=== PATIENT | female | born 1990 | race Two or more races ===

== ENCOUNTER 2023-09-08 09:45 | Emergency (ER) | payer MEDICAID, OTHER ==
[~2023-09-08] VITALS: Ht 170.2 cm; Wt 91.8 kg
[2023-09-08 10:43] VITALS: BP 147/87; PULSE 88; RESP 18; O2SAT 98
[2023-09-08] MEDS: ACETAMINOPHEN 500 MG TAB PO ONE (10:54)
[2023-09-08] MEDS ORDERED: NAPR-746 PO (11:48)
[2023-09-08] MEDS ORDERED: CYCL-837 PO (11:48)
[2023-09-08] MEDS ORDERED: LIDO5DIS21 TOP (11:48)
[2023-09-08 11:59] VITALS: TEMP 98
== END 2023-09-08 12:02 | disposition home or self-care (01) ==
LOC: ER 09:45
DX: M54.50 Low back pain, unspecified (principal); M54.2 Cervicalgia; V89.2XXA Person injured in unspecified motor-vehicle accident, traffic, initial encounter; Y93.89 Activity, other specified; Y92.89 Other specified places as the place of occurrence of the external cause; Y99.8 Other external cause status
CPT/HCPCS: 72040; 72070; 72100; 73610